=== PATIENT | male | born 2000 | race African-American/Black ===

== ENCOUNTER 2019-06-10 17:10 | Emergency (ER) | payer BC ==
[2019-06-10] MEDS ORDERED: Lidocaine Viscous Sol 2% 15 ml UD Cup ONE (17:40)
[2019-06-10] MEDS ORDERED: Lidocaine 2% Jelly 5 ML TUBE ONE (17:40)
[2019-06-10] MEDS ORDERED: Ondansetron PF 4 MG/2 ML Vial ONE (17:42)
[2019-06-10 17:55] LABS: Prothrombin Time 13.2 SEC (12.0-14.7)
[2019-06-10 18:03] LABS: ALT (SGPT) 49 U/L (8-55); AST (SGOT) 31 U/L (5-34); Albumin 4.9 g/dL (3.5-5.0); Alkaline Phosphatase 81 U/L (40-150); Anion Gap 17 mmol/L (10-20); BUN (Urea Nitrogen) 7 mg/dL (8.9-20.6); Bilirubin, Total 0.8 mg/dL (0.2-1.2); Calc. Creatinine Clearance 0 mL/min (70-130); Calcium 10.5 mg/dL (7.8-10.44); Carbon Dioxide 22 mmol/L (22-29); Chloride 104 mmol/L (98-107); Estimated GFR-MDRD Greater than 90; Globulin 3.9 g/dL (2.4-3.5); Glucose 87 mg/dL (70-105); Potassium 4.1 mmol/L (3.5-5.1); Protein, Total 8.8 g/dL (6.0-8.3); Sodium 139 mmol/L (136-145)
[2019-06-10 18:16] LABS: #Basophils 0.1 thou/uL (0.0-0.2); #Eosinphils 0.1 thou/uL (0.0-0.7); #Lymphocytes 1.6 thou/uL (1.20-3.40); #Monocytes 0.4 thou/uL (0.11-0.59); #Neutrophils 3.5 thou/uL (1.40-6.50); %Basophils 1.9 % (0.0-1.0); %Eosinophils 1.7 % (0.0-10.0); %Lymphocytes 28.4 % (21.0-51.0); %Monocytes 6.7 % (0.0-10.0); %Neutrophils 61.2 % (42.0-75.0); Hemoglobin 15.8 g/dL (14.0-18.0); Mean Corpuscular Hemoglobin 24.4 pg (27.0-31.0); Mean Corpuscular Volume 78.9 fL (78.0-98.0); Mean Platelet Volume 6.5 fL (7.4-10.4); Platelet Count 267 thou/uL (130-400); RBC Distribution Width 12.9 % (11.5-14.5); Red Blood Cell (RBC) Count 6.48 mill/uL (4.70-6.10); White Blood Cell (WBC) Count 5.7 thou/uL (4.8-10.8)
[2019-06-10 18:39] LABS: Platelet Morphology Comment Appears Adequate; RBC Morphology Normal
== END 2019-06-10 19:14 | disposition short-term general hospital (02) ==
LOC: NAV ERS 17:10
DX: K92.2 Gastrointestinal hemorrhage, unspecified (principal)
CPT/HCPCS: 36415; 43752; 80053; 85025; 85610; 85730; 86900; 86901; 96374; J2405